=== PATIENT | male | born 1995 | race Caucasian/White ===

== ENCOUNTER → 2023-04-05 | Outpatient (CLI) | payer OTHER, SELFPAY ==
[2023-04-05 12:33] LABS: Absolute Lymphocyte Count 1.59 X10^3/uL (0.83-4.51); Absolute Neutrophil Count 4.4 X10^3/uL (2.0-7.7); Basophil# 0.04 X10^3/uL; Basophil% 0.6 % (0-1); Eosinophil# 0.18 X10^3/uL; Eosinophils% 2.6 % (0-5); Hematocrit 45.3 % (40-54); Hemoglobin 15.8 g/dL (13.0-16.5); Lymphocyte # 1.59 X10^3/ul (0.83-4.51); Mean Corp Hgb Conc 34.9 g/dL (32-36); Mean Corpuscular Hgb 31.5 pg (27.0-32.0); Mean Corpuscular Volume 90.2 fL (80-94); Mean Platelet Vol. 9.3 fl (6.2-12.0); Monocyte# 0.64 X10^3/uL; Monocyte% 9.2 % (0-10); NRBC Flagged by Analyzer 0 % (0-5); Neutrophil # 4.44 X10^3/uL (2.7-7.7); Neutrophil % 64.2 % (47-70); Platelet Count 246 K/mm3 (150-450); RBC Distribution Width CV 11.8 % (11.6-14.6); RBC Distribution Width SD 38.8 fl (35.1-43.9); Red Blood Count 5.02 M/mm3 (4.6-6.2); White Blood Count 6.9 K/mm3 (4.4-11.0)
[2023-04-05 12:55] LABS: ALB/GLOB Ratio 1.1 RATIO (0.9-2.4); AST(SGOT) 18 U/L (15-37); Alanine Aminotransfer ALT/SGPT 26 U/L (16-61); Albumin, Serum 3.9 g/dL (3.2-5.0); Alkaline Phosphatase 71 U/L (45-117); Anion Gap 3 (5-15); BUN 15 mg/dL (7-18); BUN/Creat Ratio 18.2 RATIO (10-20); Chloride 110 mmol/L (98-107); Creatinine, Serum 0.82 mg/dL (0.70-1.30); EST Glomerular Filtration Rate 117 mL/min (>60); Est Glom Filt Rate - Afr Amer 141 mL/min (>60); Globulin 3.5 g/dL (2.2-4.2); Glucose 100 mg/dL (74-106); Potassium 4.5 mmol/L (3.5-5.1); Protein, Total 7.4 g/dL (6.4-8.2); Sodium Level 139 mmol/L (136-145)
[2023-04-08 15:08] LABS: Endomysial Antibody IgA Negative (Negative); Immunoglobulin A 248 mg/dL (90-386); t-Transglutaminase IgA <2 U/mL (0-3)
== END | disposition home or self-care (01) ==
LOC: LAB 12:03
PROVIDERS: Referring Provider Nurse Practitioner Adult Health; Visit Provider Nurse Practitioner Adult Health
DX: R19.5 Other fecal abnormalities (principal); R10.9 Unspecified abdominal pain; R11.10 Vomiting, unspecified
CPT/HCPCS: 36415; 80053; 82784; 83516; 85025; 86255

== ENCOUNTER 2023-06-18 13:57 | Day surgery (SDC) | payer OTHER, SELFPAY ==
[2023-06-18] VITALS (7 sets, daily range): BP systolic 102–130; BP diastolic 64–83; PULSE 66–81; RESP 16; TEMP 36.5–37; O2SAT 94–99; BMI 27.8
[2023-06-18] MEDS: Lactated Ringers 1,000 ML 15 ML IV (14:30)
--- NOTE | 2023-06-18 15:00 | EGD_PTH ---
PATIENT: GWEN HUGGINS LOC: EN U#:[id number] AGE/SX: 28/M ROOM: RE06/18/[address]: Dr. Gabe Goldstein DO : 1995 BED: DIS: 06/18/2023 SPEC #: [id number] RECD: 06/19/23 08:10 STATUS: CATHIE AKASH #: [id number] JANESSA: 06/18/23 15:[address]: Gabe Goldstein DEPT: SURGICAL PATHOLOGY RECD BY: Rebeca Russo ENTERED: 06/19/23 09:46 SP TYPE: EGD BIOPSY OT DR: Jess Primary Care Phys Tissues: A - Duodenum, NOS B - Pylorus C - Gastric mucous membrane D - Esophagus, NOS Procedures: Special Stain Group II Surgery Specimen Level IV Alcian Blue/PAS (control) HEADER OPERATION: EGD ([facility]) with biopsies PRE-OP DIAGNOSIS: Chronic vomiting, loose stools, abdominal pain TISSUE SUBMITTED: A - Duodenum, B - Pylorus biopsy, C - Gastric body biopsy, D - Random esophagus biopsy MICROSCOPIC DIAGNOSIS A. Duodenum, biopsy: Fragments of duodenal mucosa, no pathologic diagnosis. B. Pylorus, biopsy: Mild gastritis. See microscopic description and comment. C. Gastric body, biopsy: Mild gastritis. See microscopic description. D. Esophagus, random biopsy: Fragments of squamous epithelium with mild chronic inflammation and congestion. SJ:roderick 06/20/2023 COMMENT B. The results of immunohistochemistry for Helicobacter pylori will be reported separately ([id number]). Alcian blue/PAS stain with matched control is used in the evaluation of the specimen. MICROSCOPIC DESCRIPTION Slides are reviewed. B. The specimen shows fragments of gastric mucosa with chronic inflammatory cell infiltrates in the lamina propria consisting of lymphocytes and plasma cells, consistent with mild chronic gastritis. Rare cells with intestinal metaplasia (goblet cell metaplasia) are also noted. C. The specimen shows fragments of gastric mucosa with chronic inflammatory cell infiltrates in the lamina propria consisting of lymphocytes and plasma cells, consistent with mild chronic gastritis. GROSS DESCRIPTION A - Received in fixative is one container labeled with the patient's name and designated duodenum biopsy. The specimen consists of multiple irregular fragments of light lala soft tissue that in aggregate measure 0.7 x 0.5 x 0.1 cm. The specimen is totally submitted in one cassette. B - Received in fixative is one container labeled with the patient's name and designated pylorus biopsy. The specimen consists of one irregular fragment of light lala soft tissue that measures 0.5 x 0.5 x 0.1 cm. The specimen is totally submitted in one cassette. C - Received in fixative is one container labeled with the patient's name and designated gastric body biopsy. The specimen consists of two irregular fragments of light lala soft tissue that in aggregate measure 0.8 x 0.7 x 0.1 cm. The specimen is totally submitted in one cassette. D - Received in fixative is one container labeled with the patient's name and designated random esophagus. The specimen consists of multiple irregular fragments of light lala soft tissue that in aggregate measure 1.5 x 1.0 x <0.1 cm. The specimen is totally submitted in one cassette. / AM:roderick 06/19/2023 TC:3 CPT: 64580 x4, 54645
--- NOTE | 2023-06-18 15:00 | IMM_PTH ---
PATIENT: GWEN HUGGINS LOC: EN U#:[id number] AGE/SX: 28/M ROOM: RE06/18/[address]: Dr. Gabe Goldstein DO : 1995 BED: DIS: 06/18/2023 SPEC #: [id number] RECD: 06/19/23 10:25 STATUS: CATHIE RERoselyn #: [id number] JANESSA: 06/18/23 15:[address]: Gabe Goldstein DEPT: IMMUNOHISTOCHEMISTRY RECD BY: Madina Singer ENTERED: 06/19/23 10:26 SP TYPE: IMMUNO OT DR: No Primary Care Phys Tissues: B - Stomach, NOS Procedures: H Pylori (initial) PHYSICIAN & INSTITUTION [place] [id number] SPECIMEN INFORMATION: Tissue Source: B - Pylorus Clinical Info: Chronic vomiting, loose stools, abdominal pain Specimen Number: [id number] CPT code: 51774 METHODOLOGY: Deparaffinized sections of prefer/formalin-fixed tissue or PAP/DQ stained slides are incubated with monoclonal/polyclonal antibodies/oligonucleotide probes. Localization is made via biotin free immunoperoxidase method. Appropriate controls are performed and reacted as expected. Results on target cell population are indicated in the following table: RESULTS: ANTIBODY / CLONE RESULT Block B H Pylori (polyclonal) negative These tests were developed and their performance characteristics determined by [facility]. They may not have been cleared or approved by the U.S. Food and Drug Administration. The FDA has determined that such clearance or approval is not necessary. The above immunohistochemical/dualISH markers are ordered and reviewed by the Pathologist. INTERPRETATION: B. Pylorus, biopsy: Negative for Helicobacter pylori organisms. SJ:roderick 06/20/2023
--- NOTE | 2023-06-18 15:31 | PCM.HP.BLA ---
History and Physical Date of Admission: 06/18/23 Chief Complaint: chronic vomiting Details: GWEN HUGGINS, is a 28 M who presents to the office today for daily vomiting, started a couple of years ago. Occurs every morning. Starts with stabbing burning epigastric pain, spreads upward to chest, then feels nauseous, then vomits. Often feels flushed during the episodes. Sometimes feels better after vomiting. Emesis can contain undigested foods. No hematemesis. Occas acidic burp. Some upper abd gas. Feels poorly after eating, but no vomiting after eating. Only vomits first thing in the morning before eating. Has lost 40 lbs unintentionally in the last month. No relief with omeprazole, caused constipation and kidneys hurt. No relieving factors. Has tried nexium, prilosec, zantac. Hasn't been on a med for nausea. Bowels are always loose, yellow and burning. Feels like bowels don't fully evacuate. BM daily. No melena or hematochezia. Nervous to eat. No particular foods are triggers. No nocturnal symptoms. Feels better in a hot shower, feels worse if water is cool or only lukewarm. ED visits at [place]; 07/20/21--at that visit he reported chronic vomiting for at least a year; CT underfilling vs mucosal thickening of the proximal colon similar to prior exam. RUQ US negative. Marijuana can help with his nausea. Smokes marijuana at least once a day. Brother with similar symptoms ROS Const Constitutional: Positive for fatigue and weight change ENT ENT: No difficulty swallowing Gastro GI: Positive for abdominal pain, heartburn, nausea/dyspepsia and vomiting; No belching, bloating, change in bowel habits, change in stool character, coffee ground emesis, constipation, cramping, diarrhea, difficulty swallowing, feeling full early, excessive flatus, incontinent of stools, Vomiting blood/hematemesis, Blood in stool, loose stools, Black,tarry stools, pain with swallowing or other Musc Musculoskeletal: No joint pain Skin Skin: No yellowing of the eye or itchy eyes Psych Psychiatric: Positive for anxiety, Positive for depression and Positive for hyperactivity Endo Endocrine: Positive for fatigue and weight change Aller/Imm Allergy/Immunologic: No itchy eyes Tez/Lymp Hematologic/Lymphatic: No easy bleeding or easy bruising Exam Const General: cooperative and comfortable Orientation: alert, awake and oriented x3 HENMT Head: normal to inspection Eyes Sclera: sclerae normal Resp Effort & Inspection: normal respiratory effort GI Inspection: normal to inspection Skin General: no rashes or lesions noted Neuro Speech: speech normal Gait: normal gait Psych Mood: congruent mood Quality Reporting Tobacco Screening ([facility] 138) Smoking Status: Never smoker Assessment and Plan Assessment and Plan (1) Chronic vomiting: Status: Chronic Plan: 28 yo male with chronic daily vomiting x years. Episodes are typically first thing in the morning, start with epigastric pain, flushing, nausea and vomiting. Has chronic loose stools. He smokes marijuana daily. Only relieving factor for the nausea/vomiting is a hot shower. We discussed that this can indicate cannabinoid hyperemesis syndrome, but that we will evaluate him for other potential causes. Will get some labs today. Will schedule him for EGD, with office f/u 2 wks later. (2) Loose stools: Status: Chronic Plan: as above (3) Abdominal pain: Status: Chronic Plan: as above Orders: Orders Comprehensive Metabolic Profil Today R10.9 - Unspecified abdominal pain, R11.10 - Vomiting, unspecified, R19.5 - Other fecal abnormalities CBC W/Diff, Automated Today R10.9 - Unspecified abdominal pain, R11.10 - Vomiting, unspecified, R19.5 - Other fecal abnormalities Celiac Disease Profile Today R10.9 - Unspecified abdominal pain, R11.10 - Vomiting, unspecified, R19.5 - Other fecal abnormalities I have examined the patient and the H&P has been reviewed. There are no clinical changes since date of exam.
--- NOTE | 2023-06-18 16:18 | OP.CCLET_ITS ---
06/18/2023 No Primary Care Physician Re : Upper GI endoscopy procedure for David Delgado Dear Care Physician This procedure was performed on Sunday, June 18, 2023. My impressions and recommendations are as follows: Impressions : - Esophageal mucosal changes suspicious for eosinophilic esophagitis. Biopsied. - Non-bleeding gastric ulcer with no stigmata of bleeding. Biopsied. - Duodenitis. Biopsied. Recommendations : - Discharge patient to home. - Resume previous diet. - Continue present medications. - Await pathology results. My findings are described in the full procedure note, which is enclosed. If I can be of further assistance, please feel free to contact me at . Sincerely, Gabe Goldstein, 06/18/2023 4:18:02 PM This report has been signed electronically.
--- NOTE | 2023-06-18 16:18 | OP.EGD_ITS ---
Patient Name: David Delgado Procedure Date: 06/18/2023 3:49 PM Date of : 1995 Age: 28 Procedure: Upper GI endoscopy Indications: Epigastric abdominal pain, Functional Dyspepsia Providers: Gabe Goldstein DO Referring MD: Gabe Goldstein DO Medicines: Monitored Anesthesia Care Patient Profile: This is a 28 year old male. Refer to note in patient chart for documentation of history and physical. Patient has symptoms. Complications: No immediate complications. Procedure: Pre-Anesthesia Assessment: - Prior to the procedure, a History and Physical was performed, and patient medications and allergies were reviewed. The patient is competent. The risks and benefits of the procedure and the sedation options and risks were discussed with the patient. All questions were answered and informed consent was obtained. Patient identification and proposed procedure were verified by the physician in the pre-procedure area. Mental Status Examination: alert and oriented. Airway Examination: normal oropharyngeal airway and neck mobility. Respiratory Examination: clear to auscultation. CV Examination: normal. Prophylactic Antibiotics: The patient does not require prophylactic antibiotics. Prior Anticoagulants: The patient has taken no previous anticoagulant or antiplatelet agents. ASA Grade Assessment: II - A patient with mild systemic disease. After reviewing the risks and benefits, the patient was deemed in satisfactory condition to undergo the procedure. The anesthesia plan was to use monitored anesthesia care (MAC). Immediately prior to administration of medications, the patient was re-assessed for adequacy to receive sedatives. The heart rate, respiratory rate, oxygen saturations, blood pressure, adequacy of pulmonary ventilation, and response to care were monitored throughout the procedure. The physical status of the patient was re-assessed after the procedure. After obtaining informed consent, the endoscope was passed under direct vision. Throughout the procedure, the patient's blood pressure, pulse, and oxygen saturations were monitored continuously. The gastroscope was introduced through the mouth, and advanced to the second part of duodenum. The upper GI endoscopy was accomplished without difficulty. The patient tolerated the procedure well. Scope In: 4:05:34 PM Scope Out: 4:11:01 PM Total Procedure Duration Time 0 hours 5 minutes 27 seconds Findings: Mucosal changes including longitudinal furrows and small-caliber esophagus were found in the middle third of the esophagus and in the lower third of the esophagus. Biopsies were obtained from the proximal and distal esophagus with cold forceps for histology of suspected eosinophilic esophagitis. Verification of patient identification for the specimen was done. Estimated blood loss was minimal. One non-bleeding superficial gastric ulcer with no stigmata of bleeding was found in the gastric antrum and at the pylorus. The lesion was 6 mm in largest dimension. Biopsies were taken with a cold forceps for histology. Verification of patient identification for the specimen was done. Estimated blood loss was minimal. Scattered mild inflammation characterized by erosions and erythema was found in the duodenal bulb. Biopsies were taken with a cold forceps for histology. Verification of patient identification for the specimen was done. Estimated blood loss was minimal. Impression: - Esophageal mucosal changes suspicious for eosinophilic esophagitis. Biopsied. - Non-bleeding gastric ulcer with no stigmata of bleeding. Biopsied. - Duodenitis. Biopsied. Recommendation: - Discharge patient to home. - Resume previous diet. - Continue present medications. - Await pathology results. Procedure Code(s): --- Professional --- 32086, Esophagogastroduodenoscopy, flexible, transoral; with biopsy, single or multiple CPT copyright 2017 [employer]. All rights reserved. The codes documented in this report are preliminary and upon cigar head puncher review may be revised to meet current compliance requirements. Gabe Goldstein DO 06/18/2023 4:18:02 PM This report has been signed electronically. Number of Addenda: 0 Note Initiated On: 06/18/2023 3:49 PM
== END 2023-06-18 17:15 | disposition home or self-care (01) ==
LOC: EN 14:04 → AC 14:06
PROVIDERS: Referring Provider Internal Medicine Gastroenterology; Visit Provider Internal Medicine Gastroenterology
PROC: 0DJ08ZZ Inspection of Upper Intestinal Tract, Via Natural or Artificial Opening Endoscopic (ICD-10-PCS; CPT 43235; principal; 2023-06-18 14:55)
DX: K25.9 Gastric ulcer, unspecified as acute or chronic, without hemorrhage or perforation (principal); K30 Functional dyspepsia; F12.10 Cannabis abuse, uncomplicated; K29.80 Duodenitis without bleeding; R19.5 Other fecal abnormalities; K29.70 Gastritis, unspecified, without bleeding
CPT/HCPCS: 43239; 88305; 88313; 88342; J7120; J2405

== ENCOUNTER → 2024-03-24 | Outpatient (CLI) | payer OTHER, SELFPAY ==
[2024-03-24 11:47] LABS: Bacteria 0 SEEN /hpf (None Seen); Mucous, Urine 0 SEEN /hpf (<or=2+); Red Blood Cells-Urine 0 SEEN /hpf (0-5); Squamous Epithelial Cells - UA 0 SEEN /hpf (0-5); White Blood Cells 0 SEEN /hpf (0-5)
[2024-03-24 13:28] LABS: Color, Urine Yellow (Yellow); Glucose, Dipstick Normal (Normal); Ketone-Dipstick Negative (Negative); Leukocyte Esterase-Dipstick Negative /ul (Negative); Nitrite-Dipstick Negative (Negative); Occult Blood-Urine Negative /ul (Negative); Protein-Dipstick Negative (Negative); Specific Gravity, Urine 1.015 (1.002-1.030); Urine Bilirubin Dipstick Negative (Negative); Urine Clarity Clear (Clear); Urine Urobilinogen Normal (Normal)
== END | disposition home or self-care (01) ==
LOC: LAB 11:38
PROVIDERS: Referring Provider Internal Medicine Gastroenterology; Visit Provider Internal Medicine Gastroenterology
DX: R10.9 Unspecified abdominal pain (principal); R11.10 Vomiting, unspecified
CPT/HCPCS: 81001; 87086

== ENCOUNTER 2024-04-30 18:01 | Emergency (ER) | payer OTHER, SELFPAY ==
[2024-04-30 18:03] VITALS: BP 156/104; PULSE 82; RESP 16; TEMP 36.7; O2SAT 100; BMI 29.7
--- NOTE | 2024-04-30 18:16 | EDS_ITS ---
<Statement entered by Kalie Segura MD - 04/30/24 20:56> I have personally performed a face to face assessment of the patient and have reviewed the LUIS Note. Patient presents secondary to left foot injury. Patient dropped a mini fridge on his foot a couple hours prior to arrival. He has bruising, swelling, and pain to his second through fifth toes. Patient sitting upright in bed no acute distress. Left lower extremity examination reveals ecchymosis and edema to the second, third, and fourth toes. He does have a small amount of blood over the second toe. No large lacerations appreciated. Left foot x-ray reveals fractures of the distal phalanx on the second and third toes. Given the patient does have some bleeding of the second toe he will be covered with antibiotics. He will be given analgesics. Wound is cleansed and dressed and he is placed in a postop shoe. He will be referred to podiatry for follow-up. Return instructions given. HPI History of Present Illness Chief Complaint: Lower Extremity Injury Narrative Narrative: Patient is a 29-year-old male with no significant medical history presents to the emergency department with left foot injury. Patient she was carrying a mini fridge a couple hours ago when it slipped landing on his left foot. Patient has significant bruising, swelling to the left 2 through 5 toes. Patient has 3 some ungual hemorrhages. Patient has difficulty moving the area. Patient tetanus vaccination is unknown. [facility] Medical History (Updated 04/30/24 @ 19:02 by MICHAELLE Fox) Depression Anxiety Marijuana use Restless legs Syncope History of IBS Heartburn Asthma Smoker History of pain when walking History of edema Hypertension Osteochondroma Abdominal pain Chronic vomiting Home Medications ?Medication ?Instructions ?Recorded ?Last Taken ?Type sucralfate 1 gram tablet 1 g PO BID #60 tabs 06/28/23 Unknown Rx dextromethorphan-guaifenesin 10 10 ml PO Q4H PRN cough #500 mL 07/31/23 Unknown Rx mg-100 mg/5 mL oral liquid (Adult Tussin Cough Congestion DM) pantoprazole 20 mg tablet,delayed 20 mg PO BID #60 tabs 03/03/24 Unknown Rx release cephalexin 500 mg capsule 500 mg PO Q6 #20 CAPSULES 04/30/24 Unknown Rx hydrocodone-acetaminophen 5-325mg 1 tab PO Q6H PRN PRN Pain 3 days 04/30/24 Unknown Rx 5mg-325mg #10 TABLETS Allergy/AdvReac Type Severity Reaction Status Date / Time amoxicillin Allergy Intermediate Other Verified 04/30/24 18:05 Family History (Reviewed 04/05/23 @ 11:13 by Lyric Patel SSN/SSBN ASSISTANT NAVIGATOR, SSN/SSBN ASSISTANT NAVIGATOR-C) Other Hypertension Social History Smoking Status: Current some day smoker tobacco type: cigarettes alcohol intake: never ROS ROS ED ROS Narrative Constitutional: Negative for fever, chills, weight loss, weakness Eyes: Negative for vision loss, vision change, double vision ENT: Negative for any sore throat, ear pain, congestion Cardiovascular: Negative for any chest pain, tightness, palpitations Respiratory: Negative for any cough, sputum production, hemoptysis, dyspnea, dyspnea on exertion, orthopnea Gastrointestinal: Negative for any abdominal pain, nausea, vomiting, diarrhea, constipation, blood in stool, blood in vomit : Negative for any urinary frequency, dysuria, retention, blood in urine Muscle skeletal: Negative for any neck pain, back pain. Positive for left foot pain, left foot bruising, toe pain Neurological: Negative for any headache, syncope, dizziness Skin: Negative for any rashes, itching, abrasions, lacerations Psychiatric: Negative for any depression, anxiety, stress, suicidal ideation, homicidal ideation Hematologic: Negative for any excessive bruising, easy bleeding EXAM Physical Exam Narrative Exam Narrative: Vital signs reviewed. Extremities: Patient has signs of trauma to the dorsal aspect of the foot. Patient has ecchymosis, edema to the second through fifth toes on the left foot. Patient does have areas of abrasions where there is some bleeding. Patient does not tolerate any palpation or touching of his toes. Patient has +2 pedal pulse. Neuro: Cranial nerves II through XII intact, no focal neurological deficits. Skin: Clean dry and intact with no rash, purpura, petechiae, vesicles or pustules. Backs/flank: No CVA tenderness, no midline spinal tenderness, no deformity. Psych: Normal mood and affect. No SI, HI or acute psychosis. Const Vital Signs: 04/30/24 18:03 Temperature 98.1 F Temperature Source Temporal Pulse Rate 82 Respiratory Rate 16 Blood Pressure 156/104 H Blood Pressure Mean 121 Pulse Ox 100 MDM MDM Radiography Diagnostic Testing: Clinical Impression(s) from Imaging Studies Foot X-Ray 04/30/24 18:21 IMPRESSION: Fractures distal second and third phalanges Electronically Signed: Fredis Pimentel MD at 18:47 EDT Reading Location ID and State: [address] [place] [address] Tel , Service support , Treatment and Re-Evaluation :: Differential diagnosis includes however is not limited to: Fractured toe, multiple fractures, contusions, foot fracture, foot contusion Patient appears to be in mild distress secondary to pain to his left foot. Patient does have injury to his left foot this is what brought him to the emergency department. Vital signs are stable, patient in no distress. Patient received x-rays of left foot, I am concerned for possible multiple toe fractures. I did try to evaluate if there is any laceration needing sutures however the patient was unable to handle me touching his toes. Patient was given a [place] here, will be given x-rays of the left foot. Patient be up-to-date on his tetanus vaccination, insert radiology. Patient's x-rays of the foot shows fractures distal second and third phalanges. Patient will have the wounds clean. Patient will be placed in a postop shoe, he will be given pain medicine for home. He will follow-up with podiatry. He will also be given crutches. Patient instructed to soak his wounds, pat dry. He will use the postop shoe, he will follow-up outpatient. Happy with the plan of care, his tetanus vaccination was updated today. All questions answered, stable for discharge. Discharge Plan Triage Chief Complaint: Lower Extremity Injury ED Midlevel Provider: Suresh Sol ED Provider: Kalie Segura Dx/Rx/DC Orders Clinical Impression: Closed fracture of toe, Hematoma Instructions: ED Hematoma, ED Fracture, Toe, Closed Prescriptions: New cephalexin 500 mg capsule 500 mg PO Q6 Qty: 20 0RF hydrocodone-acetaminophen 5-325 mg tablet 1 tab PO Q6H PRN PRN (Reason: Pain) 3 Days Qty: 10 0RF No Action dextromethorphan-guaifenesin [Adult Tussin Cough Congest DM] 10-100 mg/5 mL liquid 10 ml PO Q4H PRN (Reason: cough) Qty: 500 0RF sucralfate 1 gram tablet 1 g PO BID Qty: 60 2RF pantoprazole 20 mg tablet,delayed release (DR/EC) 20 mg PO BID Qty: 60 3RF Stand Alone Forms: Work / School Excuse Primary Care Provider: Care Physician,No Primary Referrals: Ilya Saucedo DPM [Med Staff - Active Staff] - Care Physician,No Primary [Primary Care Provider] - Activity Restrictions/Additional Instructions: Use your crutches, postop shoe. Return for any worsening symptoms. Follow-up outpatient. Instructed to ice and elevate. Print Language: Mongolian Disposition Disposition: Home, Self Care
--- NOTE | 2024-04-30 18:21 | RAD_ITS ---
STUDY: X-RAY - LEFT FOOT CLINICAL: Male, 29 years old. foot injury TECHNIQUE: 3 view(s) of the foot. COMPARISON: None. FINDINGS: Normal talus, calcaneus, and tarsal bones. Normal visualized subtalar, talonavicular, calcaneocuboid, tarsal and tarsometatarsal articulations. Normal metatarsi. Normal metatarsophalangeal joint of the great toe. Normal tibial and fibular sesamoid bones. Normal interphalangeal joint of the great toe. Normal phalanges of the great toe. Normal second through fifth metatarsophalangeal joints. Nondisplaced fractures distal second and third phalanges. The soft tissue structures are unremarkable. RAD/Foot min 3 Views IMPRESSION: Fractures distal second and third phalanges Electronically Signed: Fredis Pimentel MD at 18:47 EDT ,
[2024-04-30] MEDS: HYDROcodone Bitartrate/Apap 5/325 Tablet PO (18:35)
[2024-04-30] MEDS: Diphth,Pertuss(Acell),Tet Vac 0.5 ML Vial IM (18:35)
== END 2024-04-30 19:55 | disposition home or self-care (01) ==
LOC: ED 19:07
PROVIDERS: Emergency Provider Emergency Medicine; Visit Provider Emergency Medicine
DX: S92.532A Displaced fracture of distal phalanx of left lesser toe(s), initial encounter for closed fracture (principal); W22.8XXA Striking against or struck by other objects, initial encounter; Y93.89 Activity, other specified; I10 Essential (primary) hypertension; R12 Heartburn; Z79.899 Other long term (current) drug therapy; F17.210 Nicotine dependence, cigarettes, uncomplicated; Z23 Encounter for immunization; S90.122A Contusion of left lesser toe(s) without damage to nail, initial encounter
CPT/HCPCS: 73630; 90715; 99283